=== PATIENT | female | born 1935 | race Caucasian/White ===

== ENCOUNTER → 2017-02-08 | Outpatient (CLI) | payer MEDICARE ==
[~2017-02-08] MED LIST: AMARYL PO; AMLODIPINE BES2.5 MG PO; AMLODIPINE BESYL5 MG PO; ASPIRIN81 M1 PO; AVALIDE PO; AVAPRO150 MG PO; AVAPRO300 M1 PO; CITRACAL200 MG PO; FIORICET 50-321 EACH PO; LEVOTHYROXINE50 MCG PO; METFORMIN HCL500 M1 PO; METFORMIN PO; PANTOPRAZOLE SO40 MG PO; PINDOLOL5 MG PO; SIMVASTATIN20 MG PO; SYNTHROID25 MCG PO
--- NOTE | ~2017-02-08 | US6 ---
[facility] A Service of [facility] & [facility] [place] RADIOLOGY TEXT RESULTS PATIENT: SAMAN AGUIRRE LOCATION: [facility] : 31 UNIT #: [id number] AGE: [address]: Girish Golden MD SEX: F ORDER DR: [id number] [facility] [address] [place], [place] [address] [id number] O MR#: [id number] Acc #: [id number] NAME: SAMAN AGUIRRE : 1935 SEX: F STUDY DATE/TIME: 02/08/2017 10:40 UNIT: [facility] ROOM: STUDY DESCRIPTION: US Abdominal Limited Attending Physician: Girish Golden M.D. Referring Physician: Girish Golden M.D. Ordering Physician: Girish Golden M.D. Primary Care Physician: Genevieve Trevino M.D. MEDICAL IMAGING REPORT This report is preliminary unless electronic signature is present EXAM Right upper quadrant ultrasound 02/08/2017 HISTORY Right upper quadrant, right lower quadrant and left lower quadrant abdominal pain for 1 week. Abnormally elevated liver enzymes. Gastroesophageal reflux disease. FINDINGS The liver demonstrates an increase in echotexture with attenuation of the ultrasound beam characteristic of mild fatty infiltration. No cystic or solid mass lesions were seen in the liver. The intra- and extrahepatic bile ducts are not dilated. The gallbladder is surgically absent as per patient history. The common duct measures 2 mm. The pancreas and right kidney are normal. IMPRESSION 1. Fatty infiltration of the liver. 2. Surgical absence of the gallbladder. Dictated by... Khris Villanueva M.D. THIS IS AN ELECTRONICALLY VERIFIED REPORT Khris Villanueva M.D. at 02/12/2017 9:19 AM MATHEUS/emily TD: 02/08/2017 17:44 JOB #: [id number] MEDICAL IMAGING REPORT Page 1 of 1 COPY
== END | disposition home or self-care (01) ==
LOC: CGUS 09:55
DX: K21.9 Gastro-esophageal reflux disease without esophagitis (principal); R10.31 Right lower quadrant pain; R10.32 Left lower quadrant pain; K58.0 Irritable bowel syndrome with diarrhea; R94.5 Abnormal results of liver function studies; K76.0 Fatty (change of) liver, not elsewhere classified; Z88.0 Allergy status to penicillin; Z88.5 Allergy status to narcotic agent; Z91.041 Radiographic dye allergy status; Z88.2 Allergy status to sulfonamides; Z90.49 Acquired absence of other specified parts of digestive tract
CPT/HCPCS: 76705